=== PATIENT | female | born 1970 | race Caucasian/White ===

== ENCOUNTER 2017-07-18 11:21 | Emergency (ER) | payer OTHER ==
[~2017-07-18] VITALS: Ht 152.4 cm; Wt 82.0 kg
[~2017-07-18 11:21] MED LIST: ZITHTAB PO
[2017-07-18 11:43] VITALS: BP 123/88; PULSE 80; RESP 16; TEMP 98.5; O2SAT 98
[2017-07-18] MEDS ORDERED: LIDOCAINE HCL 1% 50 ML VIAL INFIL ONE (11:45)
[2017-07-18] MEDS ORDERED: BUPIVACAINE HCL PF 0.5% 10 ML VIAL INFIL ONE (11:45)
[2017-07-18] MEDS ORDERED: IBUP800T23 PO (11:53)
[2017-07-18] MEDS ORDERED: CEPH-460 PO (11:53)
--- NOTE | 2017-07-18 11:54 | PD ---
HPI Chief Complaint: Injury Time Seen by Provider: 11:52 Travel History International Travel<30 days: No Contact w/Intl Traveler<30days: No Traveled to known affect area: No History of Present Illness HPI Residual female presents emergency Department with complaint of nail avulsion to her left thumb from a weightlifting bar bouncing back up and hitting her nail while working out today. Denies paresthesias, loss of sensation, decreased range of motion to the affected finger. Unknown tetanus status. Has not taken any medications to alleviate her symptoms. Has taped the nail in place. Has no other medical complaints. No known allergies. No other modifying factors or associated signs and symptoms. PFSH Past Medical History Medical History: Denies Significant Hx Diminished Hearing: No ?: Not LMP: 07/08/17 Past Surgical History Surgical History: No Previous Surgery Section: Yes Social History Alcohol Use: No Tobacco Use: No Substance Use: No Allergies-Medications (Allergen,Severity, Reaction): Coded Allergies: No Known Allergies (Unverified , 10/26/16) Reported Meds & Prescriptions Reported Meds & Active Scripts Active Ibuprofen 800 Mg Tab 800 Mg PO Q6HR PRN Keflex (Cephalexin) 500 Mg Cap 500 Mg PO Q8H 7 Days Review of Systems Except as stated in HPI: all other systems reviewed are Neg Physical Exam Narrative GENERAL: Well-nourished, well-developed female patient, in no acute distress SKIN: Warm and dry. Left thumb nail avulsion; part of the base of the nail still intact; sensory intact; with full range of motion. Without erythema, edema. Minimal amount of bright red drainage from the nail bed. Leading control. HEAD: Atraumatic. Normocephalic. EYES: Pupils equal and round. No scleral icterus. No injection or drainage. ENT: Mucosa pink and moist. Airway patent. NECK: Trachea midline. CARDIOVASCULAR: Regular rate. RESPIRATORY: No accessory muscle use. GASTROINTESTINAL: Rounded. MUSCULOSKELETAL: No obvious deformities. No clubbing. No cyanosis. No edema. NEUROLOGICAL: Awake and alert. Oriented 3. No obvious cranial nerve deficits. Motor grossly within normal limits. Normal speech. PSYCHIATRIC: Appropriate mood and affect; insight and judgment normal. Data Data Last Documented VS Vital Signs Date Time Temp Pulse Resp B/P (MAP) Pulse Ox O2 Delivery O2 Flow Rate FiO2 07/18/17 11:43 98.5 80 16 123/88 (100) 98 Orders Orders Bupivacaine Pf 0.5% Inj (Marcaine Pf 0.5 (07/18/17 11:45) Lidocaine 1% Inj (50 Ml) (Xylocaine 1% I (07/18/17 11:45) Tetanus/Diphtheria Tox Adult (Tetanus/Di (07/18/17 12:15) MDM Medical Decision Making Medical Screen Exam Complete: Yes Emergency Medical Condition: Yes Medical Record Reviewed: Yes Differential Diagnosis Nail avulsion, nail contusion, finger contusion Narrative Course 47-year-old female with left thumb nail avulsion. Tetanus updated in the ER. See my procedure note for nail repair. Ibuprofen and Keflex prescribed for home. Finger splint provided for home. Instructed patient to follow up with primary care provider. Patient verbalizes understanding and agreement with treatment plan. Patient is medically cleared and stable for discharge. Discussed reasons to return to the emergency department. Patient agrees with treatment plan. The patients vital signs are stable and the patient is stable for outpatient follow-up and treatment. Patient discharged home, stable and in no acute distress. Procedures Procedure Narrative Nail avulsion repair: The left thumb was digitally blocked with 1% lidocaine and 0.5% bupivacaine. It was properly anesthetized. The nail was placed back onto the nailbed and Dermabond was used to secure the nail. 2 simple interrupted sutures using 4-0 Prolene was used to secure both sides of the nail. Sterile dressing applied. Patient tolerated well. Diagnosis Primary Impression: Nail avulsion, finger Qualified Codes: S61.309A - Unspecified open wound of unspecified finger with damage to nail, initial encounter Referrals: Primary Care Physician Patient Instructions: General Instructions, Nail Avulsion (ED) Additional Instructions: Keep area clean and dry Med/Other Pt SpecificInfo: Prescription(s) given Scripts Ibuprofen (Ibuprofen) 800 Mg Tab 800 MG PO Q6HR Y for PAIN, #40 TAB 0 Refills Prov: Mari Redman 07/18/17 Cephalexin (Keflex) 500 Mg Cap 500 MG PO Q8H for Infection for 7 Days, CAP 0 Refills Prov: Mari Redman 07/18/17 Disposition: 01 DISCHARGE HOME Condition: Stable Mari Redman Jul 18, 2017 11:54
[2017-07-18] MEDS ORDERED: TETANUS/DIPHTHERIA TOXOID ADULT 0.5 ML VIAL IM ONE (12:15)
== END 2017-07-18 13:11 | disposition home or self-care (01) ==
LOC: NEPK 11:21
DX: S61.102A Unspecified open wound of left thumb with damage to nail, initial encounter (principal); Z23 Encounter for immunization; W21.89XA Striking against or struck by other sports equipment, initial encounter; Y93.B3 Activity, free weights
CPT/HCPCS: 11760; 90471; 90714